=== PATIENT | male | born 1995 | race African-American/Black ===

== ENCOUNTER 2021-06-22 15:17 | Inpatient (IN) | payer OTHER ==
[~2021-06-22] VITALS: Ht 182.9 cm; Wt 60.0 kg
[2021-06-22 17:17] LABS: HEMATOCRIT 47.5 % (42.0-52.0); HEMOGLOBIN 15.6 g/dl (13.5-17.5); MEAN CORPUSCULAR HEMOGLOBIN 25.5 pg (27.0-33.0); MEAN CORPUSCULAR HGB CONC 32.8 g/dl (32.0-36.5); MEAN CORPUSCULAR VOLUME 77.6 fl (80.0-96.0); PLATELET COUNT, AUTOMATED 199 10^3/uL (150-450); RED BLOOD COUNT 6.12 10^6/uL (4.30-6.10); WHITE BLOOD COUNT 4.3 10^3/uL (4.0-10.0)
[2021-06-22 17:28] LABS: AMPHETAMINES LEVEL URINE NEGATIVE (NEGATIVE); BARBITURATES URINE NEGATIVE (NEGATIVE); BENZODIAZEPINES URINE NEGATIVE (NEGATIVE); CANNABINOIDS URINE NEGATIVE (NEGATIVE); COCAINE METABOLITE URINE NEGATIVE (NEGATIVE); METHADONE URINE NEGATIVE (NEGATIVE); OPIATES URINE NEGATIVE (NEGATIVE); PHENCYCLIDINE URINE NEGATIVE (NEGATIVE)
[2021-06-22 17:36] LABS: ACETAMINOPHEN LEVEL < 2.0 UG/ML (10.0-30.0); ALT/SGPT 33 U/L (12-78); BILIRUBIN,DIRECT 0.1 MG/DL (0.0-0.2); BILIRUBIN,TOTAL 0.5 MG/DL (0.2-1.0); BLOOD UREA NITROGEN 15 MG/DL (7-18); CALCIUM LEVEL 9.3 MG/DL (8.5-10.1); CARBON DIOXIDE LEVEL 27 MEQ/L (21-32); CHLORIDE LEVEL 107 MEQ/L (98-107); CREATININE FOR GFR 1.26 MG/DL (0.70-1.30); ETHYL ALCOHOL (ETHANOL) < 0.003 % (0.000-0.010); GLOMERULAR FILTRATION RATE > 60.0 (>60); GLUCOSE, FASTING 74 MG/DL (70-100); POTASSIUM SERUM 4.2 MEQ/L (3.5-5.1); SALICYLATE LEVEL < 1.7 MG/DL (5.0-30.0); SODIUM LEVEL 139 MEQ/L (136-145); THYROID STIMULATING HORMONE 0.596 uIU/ML (0.358-3.740); TOTAL PROTEIN 7.5 GM/DL (6.4-8.2)
[2021-06-22 19:43] LABS: RSV AMPLIFICATION NEGATIVE (NEGATIVE)
[2021-06-22] MEDS ORDERED: HOME MED LIST COMPLETE! XX SCH (20:15)
[2021-06-22] MEDS ORDERED: hydrOXYzine 50 MG TAB PO PRN (21:40)
[2021-06-22] MEDS ORDERED: ACETAMINOPHEN TAB 650MG DOSE (2X325MG) PO PRN (21:40)
[2021-06-22] MEDS ORDERED: MAALOX 30 ML SUSP *UDC PO PRN (21:40)
[2021-06-22] MEDS ORDERED: traZODone 50 MG TAB PO PRN (21:40)
[2021-06-22] MEDS ORDERED: MOM 30ML SUSPENSION UDC PO PRN (21:40)
[2021-06-22 23:15] VITALS: BP 100/69
--- NOTE | 2021-06-23 04:11 | MHIPNPDOC ---
[facility] Progress Note Progress Note DATE OF SERVICE: 06/23/21 Communicated with PSA patient is to be admitted. 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 Vital Signs Vital Signs Date Time Temp Pulse Resp B/P (MAP) Pulse Ox O2 Delivery O2 Flow Rate FiO2 06/22/21 17:37 97.6 58 18 119/83 (95) 99 Room Air Laboratory Data 24H Labs Laboratory Tests 2 06/22/21 15:35: Nucleated Red Blood Cells % (auto) 0.0, Anion Gap 5L, Glomerular Filtration Rate > 60.0, Calcium Level 9.3, Total Bilirubin 0.5, Direct Bilirubin 0.1, Aspartate Amino Transf (AST/SGOT) 29, Alanine Aminotransferase (ALT/SGPT) 33, Alkaline Phosphatase 61, Total Protein 7.5, Albumin 4.0, Albumin/Globulin Ratio 1.1, T hyroid Stimulating Hormone (TSH) 0.596, Salicylates Level < 1.7L, Urine Opiates Screen NEGATIVE, Urine Methadone Screen NEGATIVE, Acetaminophen Level < 2.0L, Urine Barbiturates Screen NEGATIVE, Urine Phencyclidine Screen NEGATIVE, Urine Amphetamines Screen NEGATIVE, Urine Benzodiazepines Screen NEGATIVE, Urine Cocaine Metabolite Screen NEGATIVE, Urine Cannabinoids Screen NEGATIVE, Ethyl Alcohol Level < 0.003 06/22/21 18:45: Coronavirus (COVID-19)(PCR) NEGATIVE, Influenza Type A (RT-PCR) NEGATIVE, Influenza Type B (RT-PCR) NEGATIVE, Respiratory Syncytial Virus (PCR) NEGATIVE CBC/BMP Laboratory Tests 06/22/21 15:35 Current Medications Current Medications Medications (Trade) Dose Ordered Sig/Aldo Route PRN Reason Start Time Stop Time Status Last Admin Dose Admin Acetaminophen (Tylenol Tab) 650 mg Q6HP PRN PO HEADACHE or MILD DISCOMFORT 06/22/21 21:40 Al Hydrox/Mg Hydrox/Simethicone (Mylanta) 30 ml Q4HP PRN PO HEARTBURN/INDIGESTION 06/22/21 21:40 Home Med (Home Med List Complete!) ASDIRECTED XX 06/22/21 20:15 06/22/21 20:13 DC Hydroxyzine HCl (Atarax) 50 mg Q6HP PRN PO ANXIETY/AGITATION 06/22/21 21:40 Magnesium Hydroxide (Milk Of Magnesia) 30 ml DAILYPRN PRN PO CONSTIPATION 06/22/21 21:40 Trazodone HCl (Desyrel) 50 mg QHSP PRN PO INSOMNIA 06/22/21 21:40 Allergies Coded Allergies: No Known Allergies (Verified Allergy, Unknown, 06/22/21) JANAE CAREY MD Jun 23, 2021 04:11
[2021-06-23 07:51] VITALS: BP 115/64
--- NOTE | 2021-06-23 09:37 | MHHPEPDOC ---
General Legal Status: 9.13 Chief Complaint "When alone I have suicidal thoughts" History of Present Illness HISTORY OF THE PRESENT ILLNESS: Patient is a 26 -year-old AD (13 months in the ),, male, who denies past psychiatric history who presented from screening appointment by therapist, says he went to get help. Reports he is not very happy with work, reports suicidal thoughts when stressed when people yell at him, says they started in December of this year since joining [employer], says when alone has thoughts of wanting to drive a car into something, last time was yesterday, but denies he would go through with anything. Reports stressor of feeling he "suck at my job due to language [employer] i[employer]". 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 States also when alone "I'm alone I have these thoughts". Denies long depressive periods, juan or psychosis. Reports generalized worries, which started when he joined the [employer], sleep is normal, appetite is normal. Reports being future oriented, wanting to go back to [place] for school if leaves [employer], see , return to house and have a happy life. Reports he is confucianist and has strong supports, wants to leave. Psychiatric Review of Systems Depression (2 or more weeks): depressed mood, difficulty concentrating, suicidal thoughts Juan (4 or more days of): denies Psychosis: denies PTSD: mood fluctuations Anxiety: gen/non-specific anxiety, situational anxiety Anxiety/ 6 months or more of: irritability Past Psychiatric History Previous Psychiatric Diagnosis: denies Previous Psychiatric Admissions: none Suicide Attempts: per [facility] chart review for months has had suicidal thoughts, intent, plan, daily suicidal thoughts Psychiatric Follow-up: [facility], sees "Austin Vincent" for therapist, saw 1x time yesterday, told patient to come here Psychiatric medications: none Past Medical History Medical Problems denies Head Injury: No Seizures: No Hospitalizations: No Surgeries: No Family Medical/Psychiatric HX Medical Problems denies Psychiatric Disorders: No Addiction: No Suicide Attemps/Completions: No Addiction History denies Social History Childhood: Grew up in [facility], "great childhood", 2 brothers, 1 sister, he is oldest. Still in touch, they are in [place]. Parents , live in [place]. Abuse/Trauma: Denies Current Living Situation: [place]-post, lives : [place]: [phone] Education: grade 12 Employment: [employer] Social Support: , parents Legal: denies Marital: , no kids Mental Status Examination General Appearance: well groomed, appears stated age Build: thin Demeanor: guarded Eye Contact: average Activity: anxious Behavior: cooperative Speech: clear, spontaneous, reg/rate,rhythm,volume, other (bengali is second language, no need for buyer liaison) Mood: anxious Affect: constricted Thought Process: logical/linear Thought Content (Delusions): none reported Thought Content (Other): none reported Thought Content (Aggressive): none reported Perception (Hallucinations): none reported Perception (Other): none reported Cognition (Impairment of): none reported Cognition(Intelligence Est.): average Oriented: Awake, Alert, Oriented times three Insight: good Judgment: Good Psychosis: Denies Diagnoses Adjustment disorder A-FIB/CHADSVASC A-FIB History Current/History of A-Fib/PAF?: No Current PO Anticoag Therapy: No Age/Risk Factor Scoring CHADSVASC: CHADSVASC Response (Comments) Value Age Risk Factor Age < 65 years old 0 Gender Risk Factor Male 0 Hx of CHF No 0 Hx of HTN No 0 Hx of Stroke/TIA/or VTE No 0 Hx of Diabetes No 0 Hx of Vascular Disease No 0 Total 0 Treatment Treatment ordered: NONE Reason Anticoagulant not given: Not indicated/[id number] Assessment Patient is a 26-year-old -[place] man from [facility], who is an active duty soldier since 13 months, who presented after going to the [facility] from behavioral health evaluation screener and being sent by his therapist to the ED. Reports due to stressor of work, having difficulty doing the job on his own and having a language barrier he sometimes gets so anxious he has suicidal ideation of crashing his car, but denies intent and says that they are fleeting thoughts that are gone after a few minutes, is future oriented and says that he wants to return to school, returned to his in [place], or at least try to sort through some of the challenges that he has at work with assistance. He states he would never harm himself because of his family, due to his confucianist background and that he needs to work on not putting work stress on himself while being quite introverted. Denies extended periods of depression, endorses situational anxiety in context of work, denies manic symptoms or psychotic symptoms or substance abuse, any past self-harm or suicide attempts. Patient is agreeable to attend groups due to holiday to work on coping skills and then [place]. Initial Treatment Plan 1. Patient was admitted on a [9.39] status. 2. Complete history was obtained. 3. With patients permission, family will be contacted and database will be expanded. 4. Patients medication regimen will be reviewed and changed accordingly. 5. Patient will be provided with protected environment. 6. Patient will be treated with individual, group, and milieu therapies. 7. Patient will receive supportive psych-education. 8. Discharge planning will commence immediately. 9. Outpatient follow-up treatment will be strongly recommended. 10. The initial treatment plan will focus initially on: * Depression. * Risk for suicide. ESTIMATED LENGTH OF STAY: - DAYS. TIME SPENT COUNSELING AND COORDINATING INITIAL CARE: minutes. Tobacco Cessation Screen If Patient is a Smoker none Tobacco Cessation Tx Ordered?: Yes Complete/Results docum. Vital Signs Vital Signs Date Time Temp Pulse Resp B/P (MAP) Pulse Ox O2 Delivery O2 Flow Rate FiO2 06/23/21 07:51 97.8 51 14 115/64 (81) 100 Room Air Laboratory Data 24H Labs Laboratory Tests 2 06/22/21 15:35: Nucleated Red Blood Cells % (auto) 0.0, Anion Gap 5L, Glomerular Filtration Rate > 60.0, Calcium Level 9.3, Total Bilirubin 0.5, Direct Bilirubin 0.1, Aspartate Amino Transf (AST/SGOT) 29, Alanine Aminotransferase (ALT/SGPT) 33, Alkaline Phosphatase 61, Total Protein 7.5, Albumin 4.0, Albumin/Globulin Ratio 1.1, Thyroid Stimulating Hormone (TSH) 0.596, Salicylates Level < 1.7L, Urine Opiates Screen NEGATIVE, Urine Methadone Screen NEGATIVE, Acetaminophen Level < 2.0L, Urine Barbiturates Screen NEGATIVE, Urine Phencyclidine Screen NEGATIVE, Urine Amphetamines Screen NEGATIVE, Urine Benzodiazepines Screen NEGATIVE, Urine Cocaine Metabolite Screen NEGATIVE, Urine Cannabinoids Screen NEGATIVE, Ethyl Alcohol Level < 0.003 06/22/21 18:45: Coronavirus (COVID-19)(PCR) NEGATIVE, Influenza Type A (RT-PCR) NEGATIVE, Influenza Type B (RT-PCR) NEGATIVE, Respiratory Syncytial Virus (PCR) NEGATIVE CBC/BMP Laboratory Tests 06/22/21 15:35 Medications No Active Prescriptions or Reported Meds Allergies Coded Allergies: No Known Allergies (Verified Allergy, Unknown, 06/22/21) JANAE CAREY MD Jun 23, 2021 09:37
[2021-06-23 16:09] VITALS: BP 115/68
--- NOTE | 2021-06-23 18:16 | HPE ---
HISTORY AND PHYSICAL DATE OF ADMISSION: 06/22/2021 CHIEF COMPLAINT: Depression. HISTORY OF PRESENT ILLNESS: A 26-year-old male with a history of depression, admitted to the inpatient mental health unit due to suicidal thoughts, not being happy with his work at [employer], and wanting to go back to [place] for school. He currently denies any medical complaints, such as fever, chills, weight gain, weight loss, insomnia, hypersomnia, polyphagia, polydipsia, polyuria, rashes, muscle pain, joint pain, chest pain, pressure, or tightness, shortness of breath, hemoptysis, cough, sore throat, tinnitus, vertigo, earache, ear discharge, nausea, vomiting, diarrhea, abdominal pain, bright red blood per rectum, melena, black, tarry stools, bilateral upper or lower extremity weakness, paresthesias, polyuria, polydipsia, dysphagia, odynophagia, weakness, dysuria, urgency, frequency, hematuria. No other medical complaints. MEDICAL HISTORY: None. PAST SURGICAL HISTORY: None. SOCIAL HISTORY: Denies alcohol, tobacco, recreational drug use. FAMILY HISTORY: Mother and father alive. Unknown medical problems. REVIEW OF SYSTEMS: Per history of present illness (HPI). A 12-point system otherwise negative. ALLERGIES: No known drug allergies. HOSPITAL MEDICATIONS: Atarax, Mylanta, milk of magnesia, Tylenol, and Desyrel. PHYSICAL EXAMINATION: Temperature 98.3, pulse 54, respiratory rate 16, blood pressure 115/68, 98% on room air. GENERAL: Awake, alert, oriented to person, place, and time. Answering questions appropriately. LUNGS: Clear to auscultation. No wheezes, rales, or rhonchi. HEART: S1, S2, sinus rhythm but bradycardic. ABDOMEN: Soft, nontender, nondistended. Positive bowel sounds. EXTREMITIES: No cyanosis, clubbing, or pitting edema. LABORATORY DATA: Please see the chart. ASSESSMENT AND PLAN: A 26-year-old male admitted to the inpatient mental health unit on 06/22/2021 due to suicidal thoughts and depression. He currently does not have any acute medical problems. IMPRESSION: Depression and risk for suicide. Psychiatric management. Hospitalist will sign off. Patient currently has no acute medical issues. Please reconsult if needed.
[2021-06-24 06:14] VITALS: BP 96/57
--- NOTE | 2021-06-24 12:24 | MHIPNPDOC ---
[facility] Progress Note Progress Note DATE OF SERVICE: 06/24/21 Subjective:" I only have suicidal thoughts when I am stressed that are me otherwise I am fine, I do not need any medications" . Objective :patient is a 26-year-old -[place] man from [facility], who is an active duty soldier since 13 months, who presented after going to the [email or web address] from behavioral health evaluation screener and being sent by his therapist to the ED. Reports due to stressor of work, having difficulty doing the job on his own and having a language barrier he sometimes gets so anxious he has suicidal ideation of crashing his car, but denies intent and says that they are fleeting thoughts that are gone after a few minutes, is future oriented and says that he wants to return to school, returned to his in [place], or at least try to sort through some of the challenges that he has at work with assistance. He states he would never harm himself because of his family, due to his advent background and t hat he needs to work on not putting work stress on himself while being quite introverted. Denies extended periods of depression, endorses situational anxiety in context of work, denies manic symptoms or psychotic symptoms or substance abuse, any past self-harm or suicide attempts. Patient is agreeable to attend groups due to holiday to work on coping skills and then [place]. Mental status examination: He is average built and height, appears stated age cooperative made intermittent eye contact, psychomotor activity is normal, speech rate rhythm volume are good, Mood is depressed, affect is constricted, thought process linear goal-directed, thought content denied any suicidal homicidal thoughts, he is oriented to time place and person, his memory immediate remote recent are good, he is insight and judgment are fair Diagnosis : Adjustment disorder with depressed mood. Assessment /plan:patient reports his symptoms are due to stress and will learn some coping skills while in the hospital and go back to work. Estimated length of stay 3 to 4 days Time spent 25 minutes Vital Signs Vital Signs Date Time Temp Pulse Resp B/P (MAP) Pulse Ox O2 Delivery O2 Flow Rate FiO2 06/24/21 06:14 97.3 50 16 96/57 (70) 100 Room Air Current Medications Current Medications Medications (Trade) Dose Ordered Sig/Aldo Route PRN Reason Start Time Stop Time Status Last Admin Dose Admin Acetaminophen (Tylenol Tab) 650 mg Q6HP PRN PO HEADACHE or MILD DISCOMFORT 06/22/21 21:40 Al Hydrox/Mg Hydrox/Simethicone (Mylanta) 30 ml Q4HP PRN PO HEARTBURN/INDIGESTION 06/22/21 21:40 Home Med (Home Med List Complete!) ASDIRECTED XX 06/22/21 20:15 06/22/21 20:13 DC Hydroxyzine HCl (Atarax) 50 mg Q6HP PRN PO ANXIETY/AGITATION 06/22/21 21:40 Magnesium Hydroxide (Milk Of Magnesia) 30 ml DAILYPRN PRN PO CONSTIPATION 06/22/21 21:40 Trazodone HCl (Desyrel) 50 mg QHSP PRN PO INSOMNIA 06/22/21 21:40 Allergies Coded Allergies: No Known Allergies (Verified Allergy, Unknown, 06/22/21) JENNIFER BASS MD Jun 24, 2021 12:24
[2021-06-24 16:15] VITALS: BP 111/57
[2021-06-25 06:10] VITALS: BP 101/55
--- NOTE | 2021-06-25 10:39 | MHIPNPDOC ---
[facility] Progress Note Progress Note DATE OF SERVICE: 06/25/21 Subjective:" Patient denies any suicidal thoughts interacting with peers and staff. Objective :patient is a 26-year-old -[place] man from [facility], who is an active duty soldier since 13 months, who presented after going to the [facility] from behavioral health evaluation screener and being sent by his therapist to the ED. Reports due to stressor of work, having difficulty doing the job on his own and having a language barrier he sometimes gets so anxious he has suicidal ideation of crashing his car, but denies intent and says that they are fleeting thoughts that are gone after a few minutes, is future oriented and says that he wants to return to school, returned to his in [place], or at least try to sort through some of the challenges that he has at work with assistance. He states he would never harm himself because of his family, due to his zoroastrian background and that he needs to work on not putting work stress on himself while being quite introverted. Denies extended periods of depression, endorses situational anxiety in context of work, denies manic symptoms or psychotic symptoms or substance abuse, any past self-harm or suicide attempts. Patient is agreeable to attend groups due to holiday to work on coping skills and then return to [facility] Mental status examination: He is average built and height, appears stated age cooperative made intermittent eye contact, psychomotor activity is normal, spee ch rate rhythm volume are good, Mood is depressed, affect is constricted, thought process linear goal-directed, thought content denied any suicidal homicidal thoughts, he is oriented to time place and person, his memory immediate remote recent are good, he is insight and judgment are fair Diagnosis : Adjustment disorder with depressed mood. Assessment /plan:patient reports his symptoms are due to stress and will learn some coping skills while in the hospital and go back to work. Estimated length of stay 3 to 4 days Time spent 25 minutes Vital Signs Vital Signs Date Time Temp Pulse Resp B/P (MAP) Pulse Ox O2 Delivery O2 Flow Rate FiO2 06/25/21 06:10 97.7 50 16 101/55 (70) 100 Room Air Current Medications Current Medications Medications (Trade) Dose Ordered Sig/Aldo Route PRN Reason Start Time Stop Time Status Last Admin Dose Admin Acetaminophen (Tylenol Tab) 650 mg Q6HP PRN PO HEADACHE or MILD DISCOMFORT 06/22/21 21:40 Al Hydrox/Mg Hydrox/Simethicone (Mylanta) 30 ml Q4HP PRN PO HEARTBURN/INDIGESTION 06/22/21 21:40 Home Med (Home Med List Complete!) ASDIRECTED XX 06/22/21 20:15 06/22/21 20:13 DC Hydroxyzine HCl (Atarax) 50 mg Q6HP PRN PO ANXIETY/AGITATION 06/22/21 21:40 Magnesium Hydroxide (Milk Of Magnesia) 30 ml DAILYPRN PRN PO CONSTIPATION 06/22/21 21:40 Trazodone HCl (Desyrel) 50 mg QHSP PRN PO INSOMNIA 06/22/21 21:40 Allergies Coded Allergies: No Known Allergies (Verified Allergy, Unknown, 06/22/21) JENNIFER BASS MD Jun 25, 2021 10:39
[2021-06-25 16:45] VITALS: BP 108/58
[2021-06-26 06:21] VITALS: BP 114/70
--- NOTE | 2021-06-26 10:28 | MHIPNPDOC ---
[facility] Progress Note Progress Note DATE OF SERVICE: 06/26/21 Subjective:" Patient denies any suicidal thoughts interacting with peers and staff. Objective :patient is a 26-year-old -Aust[place] man from [facility], who is an active duty soldier since 13 months, who presented after going to the [facility] from behavioral health evaluation screener and being sent by his therapist to the ED. Reports due to stressor of work, having difficulty doing the job on his own and having a language barrier he sometimes gets so anxious he has suicidal ideation of crashing his car, but denies intent and says that they are fleeting thoughts that are gone after a few minutes, is future oriented and says that he wants to return to school, returned to his in [place], or at least try to sort through some of the challenges that he has at work with assistance. He states he would never harm himself because of his family, due to his anabaptist background and that he needs to work on not putting work stress on himself while being quite introverted. Denies extended periods of depression, endorses situational anxiety in context of work, denies manic symptoms or psychotic symptoms or substance abuse, any past self-harm or suicide attempts. Patient is agreeable to attend groups due to [facility] holiday to work on coping skills and then return to [facility]. Mental status examination: He is average built and height, appears stated age cooperative made intermittent eye contact, psychomotor activity is normal, spee ch rate rhythm volume are good, Mood is depressed, affect is constricted, thought process linear goal-directed, thought content denied any suicidal homicidal thoughts, he is oriented to time place and person, his memory immediate remote recent are good, he is insight and judgment are fair Diagnosis : Adjustment disorder with depressed mood. Assessment /plan:patient reports his symptoms are due to stress and will learn some coping skills while in the hospital and go back to work. After discharge he will go back to [place]. Estimated length of stay 2 to 3 days Time spent 25 minutes Vital Signs Vital Signs Date Time Temp Pulse Resp B/P (MAP) Pulse Ox O2 Delivery O2 Flow Rate FiO2 06/26/21 06:21 97.9 60 16 114/70 (85) 98 Room Air Current Medications Current Medications Medications (Trade) Dose Ordered Sig/Aldo Route PRN Reason Start Time Stop Time Status Last Admin Dose Admin Acetaminophen (Tylenol Tab) 650 mg Q6HP PRN PO HEADACHE or MILD DISCOMFORT 06/22/21 21:40 Al Hydrox/Mg Hydrox/Simethicone (Mylanta) 30 ml Q4HP PRN PO HEARTBURN/INDIGESTION 06/22/21 21:40 Home Med (Home Med List Complete!) ASDIRECTED XX 06/22/21 20:15 06/22/21 20:13 DC Hydroxyzine HCl (Atarax) 50 mg Q6HP PRN PO ANXIETY/AGITATION 06/22/21 21:40 Magnesium Hydroxide (Milk Of Magnesia) 30 ml DAILYPRN PRN PO CONSTIPATION 06/22/21 21:40 Trazodone HCl (Desyrel) 50 mg QHSP PRN PO INSOMNIA 06/22/21 21:40 Allergies Coded Allergies: No Known Allergies (Verified Allergy, Unknown, 06/22/21) JENNIFER BASS MD Jun 26, 2021 10:27
[2021-06-26 17:19] VITALS: BP 114/67
[2021-06-27 06:38] VITALS: BP 112/56
--- NOTE | 2021-06-27 11:58 | MHIPNPDOC ---
[facility] Progress Note Progress Note DATE OF SERVICE: 06/27/21 HISTORY: HISTORY OF THE PRESENT ILLNESS: Patient is a 26 -year-old AD (13 months in the ),, male, who denies past psychiatric history who presented from FD screening appointment by therapist, says he went to get help. Reports he is not very happy with work, reports suicidal thoughts when stressed when people yell at him, says they started in December of this year since joining [employer], says when alone has thoughts of wanting to drive a car into something, last time was yesterday, but denies he would go through with anything. Reports stressor of feeling he "suck at my job due to language barrier". 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 States also when alone "I'm alone I have these thoughts". Denies long depressive periods, juan or psychosis. Reports generalized worries, which started when he joined the [employer], sleep is normal, appetite is normal. Reports being future oriented, wanting to go back to [place] for school if leaves [employer], see , return to house and have a happy life. Reports he is denominational and has strong supports, wants to leave. Notes from original assessment: * Pt came out of his room after TW completed assessment & asked if the [facility] would have access to the things he told TW, specifically what he said about expressing SI to get out of the [employer] but not really being suicidal. TW explained that [facility] would have access to that, but not his [facility]. Pt then stated that he is suicidal with a plan to crash his car. Psychiatric Review of Systems Depression (2 or more weeks): depressed mood, difficulty concentrating, suicidal thoughts Juan (4 or more days of): denies Psychosis: denies PTSD: mood fluctuations Anxiety: gen/non-specific anxiety, situational anxiety Anxiety/ 6 months or more of: irritability VITAL SIGNS: See below. NEW TEST RESULTS: none CURRENT MEDICATIONS: See below. MENTAL STATUS EXAMINATION: Patient is a 26-year old male, who is admitted following suicidal thoughts expressed with associated anxiety. Patient has difficulties with Slovenian. He is quiet and polite with sad affect Speech: Is normal but quiet. Language skills are difficulties with Slovenian language. Thought processes including: Focused on discharge. Thought content: Focused on discharge. Abstract reasoning, and computation: Intact. Description of associations: Intact. Description of abnormal or psychotic thoughts: No abnormal psychotic thoughts presently or by history. Judgment: Poor due to misunderstanding of system and language difficulties. Insight: Fair. Orientation: X3. Recent and remote memory: Intact. Attention span and concentration: Apparently intact. Language: Poor understanding of Slovenian language as above. Fund of knowledge: Full. Mood: Good. Affect: Flat. DIAGNOSES: 1. Adjustment disorder with depressed mood 2. Stressors of [employer] life. ASSESSMENT: Patient considers it was a bad idea to join the [employer] in order to obtain his citizenship MANAGEMENT PLAN: Will discuss with chain of [employer]. prior to any thoughts of discharge. TIME SPENT: 45 minutes. Vital Signs Vital Signs Date Time Temp Pulse Resp B/P (MAP) Pulse Ox O2 Delivery O2 Flow Rate FiO2 06/27/21 06:38 97.6 56 15 112/56 (74) 99 Room Air Current Medications Current Medications Medications (Trade) Dose Ordered Sig/Aldo Route PRN Reason Start Time Stop Time Status Last Admin Dose Admin Acetaminophen (Tylenol Tab) 650 mg Q6HP PRN PO HEADACHE or MILD DISCOMFORT 06/22/21 21:40 Al Hydrox/Mg Hydrox/Simethicone (Mylanta) 30 ml Q4HP PRN PO HEARTBURN/INDIGESTION 06/22/21 21:40 Home Med (Home Med List Complete!) ASDIRECTED XX 06/22/21 20:15 06/22/21 20:13 DC Hydroxyzine HCl (Atarax) 50 mg Q6HP PRN PO ANXIETY/AGITATION 06/22/21 21:40 Magnesium Hydroxide (Milk Of Magnesia) 30 ml DAILYPRN PRN PO CONSTIPATION 06/22/21 21:40 Trazodone HCl (Desyrel) 50 mg QHSP PRN PO INSOMNIA 06/22/21 21:40 Allergies Coded Allergies: No Known Allergies (Verified Allergy, Unknown, 06/22/21) JOHN LINDER MD Jun 27, 2021 11:58
--- NOTE | 2021-06-27 13:36 | MHDSPDOC ---
[facility] Discharge Summary Discharge Summary DATE OF ADMISSION: Jun 22, 2021 at 21:40 DATE OF DISCHARGE: Jun 27, 2021 DISCHARGE DIAGNOSES: 1. Adjustment Disorder 2. Stressors of [employer] life. HISTORY OF THE PRESENT ILLNESS: Patient is a 26 -year-old AD (13 months in the ),, male, who denies past psychiatric history who pr esented from [facility] screening appointment by therapist, says he went to get help. Reports he is not very happy with work, reports suicidal thoughts when stressed when people yell at him, says they started in December of this year since joining [employer], says when alone has thoughts of wanting to drive a car into something, last time was yesterday, but denies he would go through with anyt hubert. Reports stressor of feeling he "suck at my job due to language barrier". 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 States also when alone "I'm alone I have these thoughts". Denies long depressive periods, juan or psychosis. Reports generalized worries, which started when he joined the [employer], sleep is normal, appetite is normal. Reports being future oriented, wanting to go back to [place] for school if leaves , see , return to house and have a happy life. Reports he is confucianist and has strong supports, wants to leave. Notes from original assessment: * Pt came out of his room after TW completed assessment & asked if the [facility] would have access to the things he told TW, specifically what he said about expressing SI to get out of the [employer] but not really being suicidal. TW explained that [facility] would have access to that, but not his [facility]. Pt then stated that he is suicidal with a plan to crash his car. Psychiatric Review of Systems Depression (2 or more weeks): depressed mood, difficulty concentrating, suicidal thoughts Juan (4 or more days of): denies Psychosis: denies PTSD: mood fluctuations Anxiety: gen/non-specific anxiety, situational anxiety Anxiety/ 6 months or more of: irritability VITAL SIGNS: See below. NEW TEST RESULTS: none CURRENT MEDICATIONS: See below. MENTAL STATUS EXAMINATION: Patient is a 26-year old male, who is admitted following suicidal thoughts expressed with associated anxiety. Patient has difficulties with [place]. He is quiet and polite with sad affect Speech: Is normal but quiet. Language skills are difficulties with [place] language. Thought processes including: Focused on discharge. Thought content: Focused on discharge. Abstract reasoning, and computation: I ntact. Description of associations: Intact. Description of abnormal or psychotic thoughts: No abnormal psychotic thoughts presently or by history. Judgment: Poor due to misunderstanding of system and language difficulties. Insight: Fair. Orientation: X3. Recent and remote memory: Intact. Attention span and concentration: Apparently intact. Language: Poor understanding of [place]awk language as above. Fund of knowledge: Full. Mood: Good. Affect: Flat. DIAGNOSES: 1. Adjustment disorder with depressed mood 2. Stressors of [employer] life. 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 The amount of time spent in the coordination of care for this patient was approximately 60 minutes. ETOH/Disorder Med Rx ETOH/DRUG DISORDER RX: N/A Vital Signs/I&Os Vital Signs Date Time Temp Pulse Resp B/P (MAP) Pulse Ox O2 Delivery O2 Flow Rate FiO2 06/27/21 06:38 97.6 56 15 112/56 (74) 99 Room Air Medications No Active Prescriptions or Reported Meds Allergies Coded Allergies: No Known Allergies (Verified Allergy, Unknown, 06/22/21) JOHN LINDER MD Jun 27, 2021 13:36
== END 2021-06-27 14:39 | disposition home or self-care (01) | DRG 881 ==
LOC: M ED 15:17 → M ED INP 21:40 → M PSY 23:18
PROVIDERS: ADMIT Student in an Organized Health Care Education/Training Program; ATTEND Psychiatry & Neurology Child & Adolescent Psychiatry
DX: F43.21 Adjustment disorder with depressed mood (principal); R45.851 Suicidal ideations

== ENCOUNTER → 2023-01-25 | Outpatient (CLI) | payer OTHER | LOC: M PLAIMG 12:20 | PROVIDERS: ATTEND Nurse Practitioner Family | DX: R06.02 Shortness of breath (principal) ==